=== PATIENT | female | born 1990 | race Caucasian/White ===

== ENCOUNTER 2018-06-29 07:37 | Emergency (ER) | payer OTHER ==
[~2018-06-29] VITALS: Ht 162.6 cm; Wt 56.7 kg
[2018-06-29] MEDS ORDERED: PROPRANOLOL 1010 MG PO (07:53)
[2018-06-29 08:43] VITALS: BP 125/68
== END 2018-06-29 08:55 | disposition home or self-care (01) ==
LOC: ER 07:37
DX: S61.213A Laceration without foreign body of left middle finger without damage to nail, initial encounter (principal); Z88.1 Allergy status to other antibiotic agents; X50.9XXA Other and unspecified overexertion or strenuous movements or postures, initial encounter; Y93.89 Activity, other specified; Y92.89 Other specified places as the place of occurrence of the external cause; Y99.8 Other external cause status